=== PATIENT | male | born 1955 | race Caucasian/White ===

== ENCOUNTER 2022-02-15 10:37 | Emergency (ER) | payer SELFPAY ==
[~2022-02-15] VITALS: Ht 172.7 cm; Wt 74.8 kg
[2022-02-15] MEDS ORDERED: PREDNISONE20 MG PO (11:37)
[2022-02-15] MEDS ORDERED: PREDNISONE50 MG PO (11:37)
== END 2022-02-15 11:46 | disposition home or self-care (01) ==
LOC: ER 10:45
DX: L23.7 Allergic contact dermatitis due to plants, except food (principal); F17.210 Nicotine dependence, cigarettes, uncomplicated
CPT/HCPCS: 99282